=== PATIENT | female | born 1960 | race Caucasian/White ===

== ENCOUNTER → 2016-05-17 | Outpatient (CLI) | payer BC, OTHER ==
--- NOTE | 2016-05-17 10:08 | US ---
EXAM DESCRIPTION: Venous,Lower Extremity LT CLINICAL HISTORY: PAIN COMPARISON: None Available. TECHNIQUE: Left lower extremity venous ultrasound was performed. Static campos scale, color and spectral doppler images were saved to the patients medical record. FINDINGS: There is no DVT identified. There is normal color flow observed with good flow augmentation. All deep veins compress normally. IMPRESSION: No definitive DVT within the left lower extremity. There is subcutaneous edema noted, but no drainable fluid collection. Electronically signed by: Omar Beck MD 05/17/2016 10:07 AM CDT
== END | disposition home or self-care (01) ==
LOC: US 08:48
PROVIDERS: ATTEND Family Medicine
DX: M79.662 Pain in left lower leg (principal)